=== PATIENT | female | born 1930 | race Caucasian/White ===

== ENCOUNTER 2017-04-14 20:40 | Inpatient (IN) | payer OTHER ==
[~2017-04-14] VITALS: Ht 152.4 cm; Wt 44.9 kg
--- NOTE | 2017-04-14 20:56 | NUR ---
PT PLACED IN BED 6 BY EMS.
[2017-04-14 20:57] VITALS: BP 131/52
--- NOTE | 2017-04-14 21:10 | NUR ---
BIBA C/O ALOC, 3 DAYS AGO, [facility]. BREATHING TREATMENT WAS GIVEN BY FIRE DEPT, WITH NC AT 3L /MIN, NS TKO. NO N/V/D NOTED AT THIS TIME. PT PRESENTS TO THE ER WITH WOUND ON COCCYX AND BRUISES ON LEGS AND ABD AND ARMS. DIMINISHED BS WITH BILAT WHEEZED. HR EVEN AND REGULAR; RECTAL TEMP 102.2. NO CP, SOB, OR COUGH NOTED AT THIS TIME; PATIENT POSITIONED FOR COMFORT; HOB ELEVATED; BEDRAILS UP X2; BED DOWN. ER MD MADE AWARE OF PT STATUS.
--- NOTE | 2017-04-14 21:30 | NUR ---
Patient noted to have existing wounds upon arrival to ER. Photos taken of wound and placed in chart. Wound covered with dressing. Physician informed.
[2017-04-14] MEDS ORDERED: heparin SUBQ (21:33)
[2017-04-14] MEDS ORDERED: ACET-2869 PO (21:33)
[2017-04-14] MEDS ORDERED: ZINC50TA PEG (21:33)
[2017-04-14] MEDS ORDERED: [UNRECOGNIZED DRUG - CODE] PEG (21:33)
[2017-04-14] MEDS ORDERED: PANT40EC28 PO (21:33)
[2017-04-14] MEDS ORDERED: DOCU100C14 PEG (21:33)
[2017-04-14] MEDS ORDERED: NUTR-583 PEG (21:33)
[2017-04-14] MEDS ORDERED: PROP10TA28 PO (21:33)
[2017-04-14] MEDS ORDERED: LANTUS SC ×2 (21:33)
[2017-04-14] MEDS ORDERED: FERR220E10 PEG (21:33)
[2017-04-14] MEDS ORDERED: VIT500LI PO (21:33)
[2017-04-14] MEDS ORDERED: RANI150T8 PEG (21:33)
[2017-04-14] MEDS ORDERED: FURO40TA9 PO (21:33)
[2017-04-14] MEDS ORDERED: INSU-1343 SQ (21:33)
[2017-04-14] MEDS ORDERED: MELA1TAB3 PO (21:33)
[2017-04-14] MEDS ORDERED: SITA50TA3 PEG (21:33)
[2017-04-14] MEDS ORDERED: PARO40TA65 PEG (21:33)
[2017-04-14] MEDS ORDERED: BUPR75TA PEG (21:33)
[2017-04-14] MEDS ORDERED: ACETAMINOPHEN 650 MG/20.3 ML UDC GT ONE (21:55)
[2017-04-14 22:44] LABS: HEMATOCRIT 38.5 % (36-48); HEMOGLOBIN 12.3 g/dL (12.0-16.0); MEAN CORPUSCULAR HEMOGLOBIN 31 pg (27-31); MEAN CORPUSCULAR HGB CONC 32 g/dL (33-37); MEAN CORPUSCULAR VOLUME 96 fL (80-94); PLATELET COUNT (AUTO) 327 K/uL (140-450); RED BLOOD CELL COUNT(AUTO) 4.02 MIL/uL (4.20-5.40); RED CELL DISTRIBUTION WIDTH 17.5 % (11.6-13.7); WHITE BLOOD COUNT (AUTO) 20.6 K/uL (4.8-10.8)
[2017-04-14 22:45] LABS: APPEARANCE,URINE CLOUDY (CLEAR); BILIRUBIN,URINE NEGATIVE (NEGATIVE); BLOOD, URINE 3+ (NEGATIVE); COLOR,URINE YELLOW (YELLOW); LEUKOCYTE ESTERASE ,URINE 3+ (NEGATIVE); NITRITE, URINE NEGATIVE (NEGATIVE); PH,URINE >=9.0 (5.0-9.0); UGLUCOSE TRACE (NEGATIVE)
--- NOTE | 2017-04-14 22:47 | NUR ---
ABG DONE BY RT SANTO WITH NO INCIDENT. RESULTS GIVEN TO DR SOUSA. NO ORDERS GIVEN.
[2017-04-14 23:03] LABS: LYMPHOCYTES % (MANUAL) 5 % (20-46); MONOCYTES % (MANUAL) 8 % (5-12)
[2017-04-14 23:06] LABS: BARBITURATE, URINE NEG. ng/ml (NEG <=200); BENZODIAZEPINE, URINE NEG. ng/mL (NEG <=200); CANNABINOID, URINE NEG. ng/mL (NEG <=50); COCAINE, URINE NEG. ng/mL (NEG <=300); OPIATE, URINE NEG. ng/mL (NEG <=2000); PHENCYCLIDINE SCREEN,URINE NEG. ng/mL (NEG <=25)
[2017-04-14 23:13] LABS: RBC,URINE 20-50 /HPF (0-5)
[2017-04-14 23:15] LABS: ALBUMIN 2.7 g/dL (3.4-5.0); ANION GAP 10.3 (8-16); ASPARTATE AMINOTRANSFERASE 49 U/L (15-37); CARBON DIOXIDE 33.2 mmol/L (21-32); CHLORIDE 116 mmol/L (98-107); CREATININE 2.2 mg/dL (0.6-1.3); GLUCOSE 356 mg/dL (74-106); POTASSIUM 4.5 mmol/L (3.5-5.1); SODIUM SERUM 155 mmol/L (136-145); TOTAL BILIRUBIN 0.5 mg/dL (0.0-1.0)
[2017-04-14 23:15] LABS: WBC,URINE 20-60 /HPF (0-5)
[2017-04-14 23:17] LABS: UREA NITROGEN, BLOOD 150 mg/dL (7-18)
[2017-04-14] MEDS ORDERED: NACL 0.9% 500 ML IV ONE (23:20)
[2017-04-14] MEDS ORDERED: LEVOFLOXACIN 750 MG/D5W PREMIX 150 ML IV ONE (23:20)
[2017-04-15] MEDS ORDERED: LEVOFLOXACIN 750 MG/D5W PREMIX 150 ML IV ONE ×3 (00:19→00:50)
--- NOTE | 2017-04-15 00:30 | NUR ---
CALLED [employer] HEL[employer] LINE TO HAVE THEM SEE WHY I WAS UNABLE TO CHART MEDICATIONS.
[2017-04-15] MEDS ORDERED: NACL 0.9% 500 ML IV ONE ×2 (00:50→01:45)
--- NOTE | 2017-04-15 01:00 | NUR ---
DR SOUSA HAD TO RE-ORDER MEDICATIONS, PROBLEM SOLVED. NOW ALBE TO CHART ON e-MAR MEDICATIONS GIVEN.
[2017-04-15] MEDS ORDERED: NACL 0.9% 1,000 ML IV SCH (01:51)
[2017-04-15] MEDS ORDERED: ALBUTEROL 0.083% 2.5 MG/3 ML NEBU IH PRN (01:55)
[2017-04-15] MEDS ORDERED: ONDANSETRON 4 MG/2 ML VIAL IVP PRN (01:55)
[2017-04-15] MEDS ORDERED: ACETAMINOPHEN 650 MG SUPP RC PRN (02:00)
[2017-04-15] MEDS ORDERED: HYDROcodone/APAP 5/325 MG 1 TAB TAB PO PRN (02:05)
[2017-04-15] MEDS ORDERED: HYDROcodone/APAP 10/325 MG 1 TAB TAB PO STA (02:08)
--- NOTE | 2017-04-15 03:03 | NUR ---
Patient will be admitted to care of DR CORRAL. Admited to TELE. Will go to room 105B. Belongings list completed. Report to HAYLEY CORONA.
[2017-04-15] MEDS ORDERED: PIPERACILLIN/TAZOBACTAM 2.25 GM VIAL IV ONE (03:25)
--- NOTE | 2017-04-15 03:39 | NUR ---
RECEIVED FROM ER PER YONNY OQUENDO. NON VERBAL PER RN IN ER. TELEMETRY MONITORING. GT IN PLACE, MORAES CATHETER IN PLACE DRAINING WITH YELLOW URINE. NPO AT THIS TIME. NOTED WITH BRUISES TO MULTIPLE PARTS OF LOWER EXTREMITIES AND DECUBITUS ULCER TO SACRAL AREA. WITH 02 AT 2 LITERS PER MINUTE 02 SAT AT 100 %. AFEGRILE AT THIS TIME 100. PT. NEEDS WILL BE ANTICIPATED AND WILL BE MET. CALL LIGHT WITH IN REACH AND CARE PLANS FOR THE NIGHT DISCUSSED WITH FAMILY MEMBERS.
--- NOTE | 2017-04-15 03:43 | NUR ---
PT. WITH FORGETFULNESS. PT. KNOWN TO HAVE EPISODES OF BEING CONFUSED PER SON AND DAUGHTER PRESENT. ON FALL RISK PRECAUTION. PLACED ON WOUND BED . CALL LIGHT WITH IN REACH AND BED ALARM ON.
[2017-04-15 04:12] VITALS: BP 97/49
[2017-04-15] MEDS ORDERED: PIPERACILLIN/TAZOBACTAM 2.25 GM in DEXTROSE 5% 50 ML IV SCH (05:00)
[2017-04-15] MEDS ORDERED: GAUZE TP PRN (05:05)
[2017-04-15] MEDS: BLOOD GLUCOSE MONITORING 1 DEV DEV FS SCH ×4 (06:53→21:00)
[2017-04-15] MEDS ORDERED: INSULIN LISPRO 100 UNITS/ML VIAL SUBQ ONE (07:00)
[2017-04-15] MEDS: INSULIN LISPRO SLIDING SCALE 100 UNITS/ML VIAL SUBQ PRN ×3 (07:05→16:31)
--- NOTE | 2017-04-15 07:11 | NUR ---
MD CORRAL IN HERE AND INFORMED HIM OF BLOOD SUGAR . WITH ORDER TO GIVE 16 UNITS HUMALOG. ENDORSED TO THE NEXT RN FOR CONTINUITY OF CARE.
--- NOTE | 2017-04-15 07:12 | NUR ---
RECEIVED REPORT FROM NIGHT HAYLEY CORONA. PT LAYING IN BED.PT HAS FREQUENT ARM AND LEG MOVEMENTS. DAUGHTER AND SON AT BEDSIDE. MORAES CATHETER NOTED. G-TUBE NOTED. ON O2 2L NC. DRESSING TO SACRAL AREA DRY AND INTACT. IV SITE PATENT AND INTACT. AAOX1. PT'S FAMILY INFORMED ABOUT CONTACT PRECAUTIONS AND VERBALIZED UNDERSTANDING. CALL LIGHT WITHIN REACH. SAFETY MEASURES ENSURED. WILL CONTINUE TO MONITOR.
--- NOTE | 2017-04-15 07:24 | NUR ---
RCV'D PT ON 2 L NC. PT HAS A VERY DRY MOUTH AND IS AGITATED. NON RESPONSIVE TO HER NAME. FAMILY AT BEDSIDE. NO SOB OR DISTRESS NOTED. WILL CONTINUE TO MONITOR.
[2017-04-15 07:25] LABS: CREATINE KINASE MB 2.5 ng/mL (0-3.6)
[2017-04-15] MEDS ORDERED: VANCOMYCIN PER PHARMACY MC PRN (07:30)
--- NOTE | 2017-04-15 07:37 | NUR ---
PT. DRESSING FROM ER GOT SOILED. CHANGED DRESSING ORDERED. MD CORRAL AWARE OF DECUBITUS ULCER IN SACRUM. ENDORSED TO THE NEXT RN FOR CONTINUITY OF CARE.
[2017-04-15] MEDS ORDERED: LORazepam 2 MG/ML VIAL IM/IVP PRN (07:40)
[2017-04-15 08:00] VITALS: BP 102/64
--- NOTE | 2017-04-15 08:46 | NUR ---
DR. CORRAL MADE AWARE OF PT'S HR OF 120'S-150.
[2017-04-15] MEDS ORDERED: VANCOMYCIN HCL 750 MG in DEXTROSE 5% 250 ML IV SCH (09:00)
[2017-04-15] MEDS ORDERED: PROPRANOLOL HCL PO SCH (09:00)
[2017-04-15] MEDS: PANTOPRAZOLE 40 MG TABEC PO SCH (09:00)
[2017-04-15] MEDS: PROPRANOLOL 20 MG TAB PO SCH (09:00)
[2017-04-15] MEDS: PARoxetine 20 MG TAB PEG SCH (09:38)
[2017-04-15] MEDS: FERROUS SULFATE 300 MG/5 ML UDC PEG SCH (09:38)
[2017-04-15] MEDS: buPROPion 75 MG TAB PEG SCH ×2 (09:38→20:23)
[2017-04-15] MEDS: LORazepam 2 MG/ML VIAL IVP PRN ×2 (09:39→13:32)
[2017-04-15] MEDS: ENOXAPARIN 30 MG/0.3 ML SYR SUBQ SCH (09:45)
--- NOTE | 2017-04-15 09:52 | NUR ---
PATIENT HAS BEEN SCREENED AND CATEGORIZED HIGH NUTRITION RISK. PATIENT WILL BE SEEN WITHIN 1-2 DAYS OF ADMISSION. 04/15/17-04/16/[address]
[2017-04-15] MEDS: NACL 0.45% 1,000 ML IV SCH ×2 (10:00→22:30)
--- NOTE | 2017-04-15 10:04 | NUR ---
AM MEDICATIONS GIVEN VIA G-TUBE WITH EDUCATION. DAUGHTER AND SON AT BEDSIDE, VERBALIZE UNDERSTANDING.G-TUBE PATENT WITH NO RESIDUAL. ATIVAN GIVEN DUE TO PT APPEARING RESTLESS. PT RESTING COMFORTABLY IN BED NOW. NO S/S OF ACUTE DISTRESS. FLACC-0. WILL CONTINUE TO MONITOR.
--- NOTE | 2017-04-15 10:50 | NUR ---
AM CARE GIVEN, OLD MORAES CATHETER LEAKING, NEW MORAES PUT IN PLACE. WOUND CARE PROVIDED. WILL CONTINUE TO MONITOR.
[2017-04-15] MEDS: GAUZE TP SCH (10:54)
[2017-04-15 11:47] LABS: ANION GAP 17.2 (8-16); CARBON DIOXIDE 27.2 mmol/L (21-32); CHLORIDE 119 mmol/L (98-107); CREATININE 2.3 mg/dL (0.6-1.3); POTASSIUM 4.4 mmol/L (3.5-5.1)
[2017-04-15 11:49] LABS: SODIUM SERUM 159 mmol/L (136-145)
[2017-04-15 11:50] LABS: GLUCOSE 451 mg/dL (74-106); UREA NITROGEN, BLOOD 143 mg/dL (7-18)
[2017-04-15 12:00] VITALS: BP 105/54
[2017-04-15] MEDS: Z-GUARD PASTE TP SCH (13:12)
[2017-04-15] MEDS: PIPER/TAZO 2.25GM/D5W PREMIX 50 ML IV SCH ×2 (13:32→20:23)
--- NOTE | 2017-04-15 13:46 | NUR ---
PT RESTLESS AND KNOCKING OFF OXYGEN. ATIVAN GIVEN. DAUGHTER AND SON AT BEDSIDE.
[2017-04-15 15:00] LABS: CREATINE KINASE MB 1.6 ng/mL (0-3.6)
--- NOTE | 2017-04-15 15:25 | NUR ---
04/15/17 RD INITIAL ASSESSMENT COMPLETED PLEASE REFER TO NUTRITION ASSESSMENT UNDER CARE ACTIVITY FOR ESTIMATED NUTRITIONAL NEEDS. RD RECOMMENDATIONS: 1. CONTINUE NPO MEDICALLY APPROPRIATE. 2. IF/WHEN PT IS MEDICALLY STABLE TO BEING TUBE FEEDING, CONSIDER DIABETISOURCE AT 55 ML/HR WITH 200 ML OF FREE WATER FLUSH Q6H VIA G TUBE. START AT 25 ML/HR AND INCREASE 10 ML/HR Q8H TOLERATED TO GOAL RATE. AT GOAL RATE, TUBE FEEDING WILL PROVIDE 1320 ML TOTAL VOLUME, 1584 KCAL, 79 GM OF PROTEIN, AND 1879 ML OF FREE WATER (ADEQUATE TO MEET ~98% OF ESTIMATED KCAL NEEDS AND ~97% OF ESTIMATED PROTEIN NEEDS). 3. RECOMMEND ADDING 500 MG OF VITAMIN C PO DAILY FOR WOUND HEALING. 4. RD WILL F/U 2-3 DAYS; HIGH RISK DEANN HARDING RD
--- NOTE | 2017-04-15 15:41 | NUR ---
US TECH AT BEDSIDE. NO S/S OF ACUTE DISTRESS. FLACC-0. WILL CONTINUE TO MONITOR.
[2017-04-15 16:00] VITALS: BP 127/63
--- NOTE | 2017-04-15 19:11 | NUR ---
ENDORSED PLAN OF CARE TO NIGHT RN. PT REMAINS STABLE.
--- NOTE | 2017-04-15 19:15 | NUR ---
RECEIVED PATIENT REPORT AT BEDSIDE. PATIENT IS ASLEEP. NO SIGNS AND SYMPTOMS OF DISTRESS NOTED. PATIENT ON ROOM AIR. MORAES CATHETER IN PLACE, DRAINING DARK JUSTIN URINE. G-TUBE IN PLACE. IV SITE NOTED AT LEFT FOREARM, IVF INFUSING WELL. SCD IN PLACE. BED IS IN LOWEST POSITION, SIDE RAILS UP, AND CALL LIGHT WITHIN REACH. WILL CONTINUE TO MONITOR.
[2017-04-15 19:42] VITALS: BP 113/54
--- NOTE | 2017-04-15 21:45 | NUR ---
PATIENT HAD A BOWEL MOVEMENT. STOOL WAS BROWN AND MUSHY, MODERATE IN AMOUNT. ROMARIO-CARE DONE.
--- NOTE | 2017-04-15 21:55 | NUR ---
SACRAL WOUND DRESSING CHANGED. WOUND CLEANSED WITH NS. ADAPTIC APPLIED FOLLOWED BY DRY KERLEX ZAN, FAN FOLDED. ABD PAD APPLIED AND SECURED.
--- NOTE | 2017-04-15 23:35 | NUR ---
CHECKED ON PATIENT. PATIENT IS ASLEEP. NO SIGNS AND SYMPTOMS OF DISTRESS NOTED. WILL CONTINUE TO MONITOR
[2017-04-15 23:54] VITALS: BP 122/59
[2017-04-16] MEDS: Z-GUARD PASTE TP SCH ×2 (01:00→13:35)
[2017-04-16] MEDS: LORazepam 2 MG/ML VIAL IVP PRN ×2 (01:58→09:08)
[2017-04-16] MEDS: NACL 0.45% 1,000 ML IV SCH ×2 (03:30→20:15)
--- NOTE | 2017-04-16 03:55 | NUR ---
CHECKED ON PATIENT. PATIENT IS ASLEEP. NO SIGNS AND SYMPTOMS OF DISTRESS NOTED. WILL CONTINUE TO MONITOR
[2017-04-16 04:00] VITALS: BP 115/54
[2017-04-16] MEDS: PIPER/TAZO 2.25GM/D5W PREMIX 50 ML IV SCH ×3 (04:28→20:40)
--- NOTE | 2017-04-16 04:30 | NUR ---
PATIENT HAD BM. STOOL PASTY, BROWN AND MODERATED AND AMOUNT. PERINEAL CARE GIVEN. SACRAL WOUND DRESSING CHANGED. WOUND CLEANSED WITH NS. ADAPTIC DRESSING APPLIED. WOUND PACKED WITH KERLEX THEN COVERED WITH ABD PAD. PATIENT TURNED AND REPOSITIONED FOR COMFORT
--- NOTE | 2017-04-16 05:50 | NUR ---
PATIENT GIVEN ORAL CARE. PATIENT TURNED AND REPOSITIONED FOR COMFORT
[2017-04-16] MEDS: BLOOD GLUCOSE MONITORING 1 DEV DEV FS SCH ×4 (07:00→21:24)
[2017-04-16 07:18] LABS: HEMATOCRIT 31.7 % (36-48); HEMOGLOBIN 10.2 g/dL (12.0-16.0); MEAN CORPUSCULAR HEMOGLOBIN 32 pg (27-31); MEAN CORPUSCULAR HGB CONC 32 g/dL (33-37); MEAN CORPUSCULAR VOLUME 99 fL (80-94); PLATELET COUNT (AUTO) 222 K/uL (140-450); RED BLOOD CELL COUNT(AUTO) 3.22 MIL/uL (4.20-5.40); RED CELL DISTRIBUTION WIDTH 17.9 % (11.6-13.7); WHITE BLOOD COUNT (AUTO) 14.3 K/uL (4.8-10.8)
--- NOTE | 2017-04-16 07:22 | NUR ---
PATIENT REPORT GIVEN TO MORNING NURSE. PATIENT IS IN STABLE CONDITION. BED IS IN LOWEST POSITION, SIDE RAILS UP, AND CALL LIGHT WITHIN REACH.
[2017-04-16 07:25] LABS: ALBUMIN 2.2 g/dL (3.4-5.0); ANION GAP 12.9 (8-16); ASPARTATE AMINOTRANSFERASE 27 U/L (15-37); CARBON DIOXIDE 28.4 mmol/L (21-32); CHLORIDE 122 mmol/L (98-107); CREATININE 1.8 mg/dL (0.6-1.3); POTASSIUM 3.3 mmol/L (3.5-5.1); TOTAL BILIRUBIN 1.1 mg/dL (0.0-1.0)
--- NOTE | 2017-04-16 07:25 | NUR ---
RECEIVED REPORT FROM ROOM SERVICE RUNNER NURSE, PT IS RESTING IN BED, A/OX1, APHASIC, IV IS ON THE RT AC, PATENT INTACT, FLUSHING WELL, PT HAS ALSO HAS IV ON THE LEFT FA, PATENT, INTACT, FLUSHING WELL, PT HAS SACRAL WOUND, NO S/S OF RESPIRATORY DISTRESS OR DISCOMFORT NOTED, DISCUSSED PLAN OF CARE WITH PT, PT UNABLE TO COMPREHEND, CALL LIGHT IS WITHIN REACH, WILL CONTINUE TO MONITOR.
[2017-04-16 07:37] LABS: MAGNESIUM 3.1 mg/dL (1.8-2.4)
[2017-04-16 07:39] LABS: GLUCOSE 404 mg/dL (74-106); SODIUM SERUM 160 mmol/L (136-145); UREA NITROGEN, BLOOD 98 mg/dL (7-18)
[2017-04-16 08:00] VITALS: BP 106/65
[2017-04-16 08:05] LABS: BASOPHILS % (MANUAL) 0 % (0-2); EOSINOPHILS % (MANUAL) 0 % (0-4); LYMPHOCYTES % (MANUAL) 9 % (20-46); MONOCYTES % (MANUAL) 5 % (5-12)
[2017-04-16] MEDS ORDERED: INSULIN GLARGINE HUM REC ANLOG U SCH ×2 (09:00→21:00)
[2017-04-16] MEDS: ASPIRIN 81 MG TAB.CHEW PO SCH (09:00)
[2017-04-16] MEDS ORDERED: METOPROLOL 25 MG TAB PO SCH (09:00)
[2017-04-16] MEDS ORDERED: FUROSEMIDE 40 MG TAB PO SCH (09:00)
[2017-04-16] MEDS: PANTOPRAZOLE 40 MG TABEC PO SCH (09:00)
[2017-04-16] MEDS: PROPRANOLOL 20 MG TAB PO SCH (09:00)
[2017-04-16] MEDS: DOCUSATE SODIUM 100 MG GELCAP PO SCH ×2 (09:00→20:40)
[2017-04-16] MEDS: buPROPion 75 MG TAB PEG SCH ×2 (09:08→20:40)
[2017-04-16] MEDS: PARoxetine 20 MG TAB PEG SCH (09:08)
[2017-04-16] MEDS: FERROUS SULFATE 300 MG/5 ML UDC PEG SCH (09:09)
[2017-04-16] MEDS: ENOXAPARIN 30 MG/0.3 ML SYR SUBQ SCH (09:18)
[2017-04-16] MEDS: INSULIN DETEMIR 100 UNITS/ML 10 ML VIAL SUBQ SCH (09:33)
[2017-04-16] MEDS ORDERED: KCL 20 MEQ/WATER INJ PREMIX 100 ML IV SCH (10:15)
[2017-04-16] MEDS ORDERED: VANCOMYCIN HCL 750 MG in DEXTROSE 5% 250 ML IV SCH (10:30)
[2017-04-16 12:00] VITALS: BP 119/47
[2017-04-16] MEDS: INSULIN LISPRO SLIDING SCALE 100 UNITS/ML VIAL SUBQ PRN (12:49)
[2017-04-16] MEDS: GAUZE TP SCH (13:35)
[2017-04-16 16:00] VITALS: BP 119/51
[2017-04-16] MEDS: DEXTROSE 50% 50 ML SYR IVP PRN ×2 (16:37→20:49)
[2017-04-16 16:42] LABS: ANION GAP -5.2 (8-16); CARBON DIOXIDE 30.8 mmol/L (21-32); CHLORIDE 121 mmol/L (98-107); CREATININE 1.4 mg/dL (0.6-1.3); GLUCOSE 112 mg/dL (74-106); SODIUM SERUM 144 mmol/L (136-145)
[2017-04-16 16:58] LABS: POTASSIUM 2.6 mmol/L (3.5-5.1); UREA NITROGEN, BLOOD 85 mg/dL (7-18)
--- NOTE | 2017-04-16 17:02 | NUR ---
unable to perform a full echo study on patient due to body habitus and pt kept moving around. Pt was unable to stay still
--- NOTE | 2017-04-16 19:15 | NUR ---
ENDORSED PT TO PREMISES TECHNICIAN NURSE FOR CONTINUITY OF CARE, PT STABLE AT THIS TIME.
--- NOTE | 2017-04-16 19:16 | NUR ---
RECEIVED REPORT FROM DAY RN FOR CONTINUITY OF CARE. PATIENT IS ALERT AND ORIENTED X1, APHASIC. SHIFT ASSESSMENT DONE, VITAL SIGNS TAKEN, STABLE AT THIS TIME. NO RESPIRATORY DISTRESS NOTED ON 2L NC, O2 SAT AT 94%. FLACC-0. IV TO RT AC REMOVED WITH CANNULA INTACT. IV TO LT FA PATENT AND INFUSING FLUIDS WELL. PATIENT HAS MORAES CATHETER IN PLACE DRAINING JUSTIN URINE TO GRAVITY. SACRAL ULCER WITH DRESSING DRY AND INTACT. SCDS IN PLACE. SAFETY/ FALL AND CONTACT PRECAUTIONS ENFORCED, WILL CONTINUE TO MONITOR.
[2017-04-16 20:00] VITALS: BP 101/47
--- NOTE | 2017-04-16 20:49 | NUR ---
DUE MEDICATIONS ADMINISTERED VIA G TUBE, TOLERATED WELL. BLOOD SUGAR TAKEN 35, ADMINISTERED D50 PER MD ORDER, WILL REASSESS.
[2017-04-16] MEDS ORDERED: INSULIN DETEMIR 100 UNITS/ML 10 ML VIAL SUBQ SCH (21:00)
--- NOTE | 2017-04-16 21:24 | NUR ---
BLOOD SUGAR RECHECKED, NOW 154, HELD INSULIN. PATIENT RESTING IN BED, WILL CONTINUE TO MONITOR FREQUENTLY.
[2017-04-17] VITALS: BP 107/77
--- NOTE | 2017-04-17 | NUR ---
VITAL SIGNS TAKEN, PATIENT REPOSITIONED AND ROMARIO CARE PROVIDED. SAFETY MEASURES ENSURED, CALL LIGHT WITHIN REACH. WILL CONTINUE TO MONITOR.
[2017-04-17] MEDS: Z-GUARD PASTE TP SCH ×2 (01:32→13:22)
[2017-04-17] MEDS: NACL 0.45% 1,000 ML IV SCH ×2 (02:15→12:21)
[2017-04-17] MEDS: LORazepam 2 MG/ML VIAL IVP PRN (02:15)
--- NOTE | 2017-04-17 02:17 | NUR ---
REPLACED IVF, PATIENT AGITATED TOSSING AROUND, REMOVED IV WITH CANNULA INTACT,NEW IV LINE INSERTION TO LT FA PATENT AND INFUSING FLUIDS WELL. ADMINISTERED MEDICATION PER MD ORDER, VITAL SIGNS STABLE.
[2017-04-17 04:00] VITALS: BP 104/68
--- NOTE | 2017-04-17 04:10 | NUR ---
VITAL SIGNS STABLE, WOUND CARE PROVIDED. TURNED AND REPOSITIONED PATIENT TO OFFLOAD PRESSURE. SAFETY MEASURES CHECKED, WILL CONTINUE TO MONITOR FREQUENTLY.
[2017-04-17] MEDS: PIPER/TAZO 2.25GM/D5W PREMIX 50 ML IV SCH ×2 (04:37→13:28)
[2017-04-17] MEDS: BLOOD GLUCOSE MONITORING 1 DEV DEV FS SCH ×3 (05:58→16:58)
--- NOTE | 2017-04-17 06:03 | NUR ---
BLOOD SUGAR 111, NO INSULIN COVERAGE NEEDED AT THIS TIME. SAFETY MEASURES ENFORCED, WILL CONTINUE TO MONITOR.
[2017-04-17 06:58] LABS: ALBUMIN 2.2 g/dL (3.4-5.0); ANION GAP 14.2 (8-16); ASPARTATE AMINOTRANSFERASE 54 U/L (15-37); CARBON DIOXIDE 27.9 mmol/L (21-32); CHLORIDE 123 mmol/L (98-107); CREATININE 1.4 mg/dL (0.6-1.3); GLUCOSE 125 mg/dL (74-106); POTASSIUM 3.1 mmol/L (3.5-5.1); TOTAL BILIRUBIN 0.5 mg/dL (0.0-1.0)
--- NOTE | 2017-04-17 07:15 | NUR ---
ENDORSED PATIENT TO DAY RN FOR CONTINUITY OF CARE, PATIENT IS IN STABLE CONDITION.
--- NOTE | 2017-04-17 07:20 | NUR ---
RECEIVED REPORT FROM DRIVEWAY ATTENDANT NURSE, PT IS SLEEPING IN BED AT THIS TIME BUT EASILY AWAKEN, PT IS APHASIC, A/OX1, BEDBOUND, IV IS ON HER LEFT FA, PATENT, INTACT, FLUSHING WELL, PT HAS SACRAL WOUND, NO S/S OF RESPIRATORY DISTRESS OR DISCOMFORT NOTED, DISCUSSED PLAN OF CARE WITH PT, PT UNABLE TO COMPREHEND, CALL LIGHT IS WITHIN REACH, WILL CONTINUE TO MONITOR.
[2017-04-17 07:35] LABS: SODIUM SERUM 162 mmol/L (136-145); UREA NITROGEN, BLOOD 77 mg/dL (7-18)
[2017-04-17 08:00] VITALS: BP 128/56
[2017-04-17 08:40] LABS: BASOPHILS # (AUTO) 0.1 K/uL (0.00-0.22); BASOPHILS % (AUTO) 0.5 % (0.0-2.0); EOSINOPHILS # (AUTO) 0.2 K/uL (0-0.4); EOSINOPHILS % (AUTO) 1.5 % (0.0-4.0); HEMATOCRIT 31.9 % (36-48); HEMOGLOBIN 10.1 g/dL (12.0-16.0); LYMPHOCYTES # (AUTO) 0.9 K/uL (2.5-16.5); LYMPHOCYTES % (AUTO) 7.7 % (20.5-51.1); MEAN CORPUSCULAR HEMOGLOBIN 31 pg (27-31); MEAN CORPUSCULAR HGB CONC 32 g/dL (33-37); MEAN CORPUSCULAR VOLUME 98 fL (80-94); MONOCYTES # (AUTO) 0.5 K/uL (0.8-1.0); MONOCYTES % (AUTO) 4.5 % (1.7-9.3); NEUTROPHILS # (AUTO) 9.8 K/uL (1.8-7.7); NEUTROPHILS % (AUTO) 85.8 % (42.2-75.2); PLATELET COUNT (AUTO) 168 K/uL (140-450); RED BLOOD CELL COUNT(AUTO) 3.26 MIL/uL (4.20-5.40); RED CELL DISTRIBUTION WIDTH 17.7 % (11.6-13.7); WHITE BLOOD COUNT (AUTO) 11.5 K/uL (4.8-10.8)
[2017-04-17] MEDS ORDERED: PROPRANOLOL 20 MG TAB GT SCH (09:00)
[2017-04-17] MEDS: ASPIRIN 81 MG TAB.CHEW PO SCH (09:00)
[2017-04-17] MEDS: INSULIN DETEMIR 100 UNITS/ML 10 ML VIAL SUBQ SCH (09:00)
[2017-04-17] MEDS: DOCUSATE SODIUM 100 MG GELCAP PO SCH (09:00)
[2017-04-17] MEDS ORDERED: PANTOPRAZOLE 40 MG INJ VIAL IVP SCH (09:00)
[2017-04-17] MEDS: buPROPion 75 MG TAB PEG SCH (09:17)
[2017-04-17] MEDS: PARoxetine 20 MG TAB PEG SCH (09:17)
--- NOTE | 2017-04-17 09:17 | NUR ---
CHECKED FOR RESIDUAL 20ML, DUE MEDICATIONS GIVEN, PT TOLERATED WELL, CALL LIGHT IS WITHIN REACH, WILL CONTINUE TO MONITOR.
[2017-04-17] MEDS: FERROUS SULFATE 300 MG/5 ML UDC PEG SCH (09:18)
[2017-04-17] MEDS: ENOXAPARIN 30 MG/0.3 ML SYR SUBQ SCH (09:38)
--- NOTE | 2017-04-17 11:30 | NUR ---
PATIENT IS SLEEPING IN BED AT THIS TIME, NO S/S OF RESPIRATORY DISTRESS OR DISCOMFORT NOTED, CALL LIGHT IS WITHIN REACH, WILL CONTINUE TO MONITOR.
[2017-04-17] MEDS ORDERED: TYL650S RC (11:59)
[2017-04-17] MEDS ORDERED: PIPE1PDS39 IV (11:59)
[2017-04-17 12:00] VITALS: BP 110/50
--- NOTE | 2017-04-17 13:00 | NUR ---
PATIENT IS SLEEPING IN BED AT THIS TIME, CALL LIGHT IS WITHIN REACH.
[2017-04-17] MEDS: GAUZE TP SCH (13:22)
[2017-04-17] MEDS: INSULIN LISPRO SLIDING SCALE 100 UNITS/ML VIAL SUBQ PRN (13:27)
[2017-04-17] MEDS ORDERED: DEXTROSE 5% 1,000 ML IV SCH (14:05)
--- NOTE | 2017-04-17 14:05 | NUR ---
DR. GARZON BAT CARRIER AT PATIENT BEDSIDE.
--- NOTE | 2017-04-17 15:15 | NUR ---
FAXED INITIAL REVIEW TO [facility] [phone] PHONE LYNETTE [phone] CALLED [facility] AND SPOKE WITH LYNETTE. SHE SAID SHE WOULD CALL BE BACK WITH THE [facility] FOR [facility] AND TRANSPORT. I SPOKE WITH DARVIN AT [facility] [place]. THE PATIENT CAN GO TO ROOM 32B UNDER DR. Batool HAJI AFTER 6P.M.
[2017-04-17] MEDS: KCL 20 MEQ/WATER INJ PREMIX 100 ML IV SCH ×2 (15:43→17:01)
[2017-04-17 16:00] VITALS: BP 106/65
--- NOTE | 2017-04-17 16:02 | NUR ---
SPOKE WITH LYNETTE FROM [facility]. SHE SAID SHE SET UP GURNEY TRANSPORT WITH [facility] FOR 6:30P.Hilaria RAY RADAR REPAIRER NURSE AWARE. LYNETTE SAID SHE WOULD CALL [facility] AND GIVE THEM THE AUTH FOR THE [facility].
--- NOTE | 2017-04-17 16:30 | NUR ---
PATIENT'S SON (KANNAN) IS AT PATIENT'S BEDSIDE AT THIS TIME.
--- NOTE | 2017-04-17 17:00 | NUR ---
CALLED [facility] AND GAVE REPORT TO CALEB [facility].
--- NOTE | 2017-04-17 19:30 | NUR ---
ENDORSED PT TO FERRY PILOT NURSE FOR CONTINUITY OF CARE, PT STABLE AT THIS TIME.
--- NOTE | 2017-04-17 19:32 | NUR ---
RECEIVED REPORT FROM NIGHT RN. PT RESTING IN BED. AAOX1, DAUGHTER AT BEDSIDE. IV SITE PATENT AND INTACT. G-TUBE NOTED AND PATENT. MORAES CATHETER PATENT. FLACC-0. WOUND TO SACRAL AREA DRY AND INTACT. [facility] ETA 45 MINS. CALL LIGHT WITHIN REACH. SAFETY MEASURES ENSURED. WILL CONTINUE TO MONITOR.
[2017-04-17 20:00] VITALS: BP 128/44
--- NOTE | 2017-04-17 20:55 | NUR ---
[facility] HERE TO CONCRETE ROD BUSTER PT. NO S/S OF ACUTE DISTRESS. FLACC-0. G-TUBE DISCONNECTED. PT SENT WITH IV AND MORAES CATHETER ORDERED. DAUGHTER AT BEDSIDE. PT REMAINS STABLE.
--- NOTE | 2017-04-18 08:43 | NUR ---
WOUND CARE EVALUATION NOT DONE, PT. DISCHARGED ON 04/17/17
== END 2017-04-17 20:55 | DRG 871 ==
LOC: MED 20:40 → MTU 04-15 01:58
PROVIDERS: ADMIT Hospitalist; ATTEND Hospitalist
DX: A41.9 Sepsis, unspecified organism (principal); G93.40 Encephalopathy, unspecified; N17.0 Acute kidney failure with tubular necrosis; J96.10 Chronic respiratory failure, unspecified whether with hypoxia or hypercapnia; E46 Unspecified protein-calorie malnutrition; E87.0 Hyperosmolality and hypernatremia; Z93.0 Tracheostomy status; Z68.1 Body mass index [BMI] 19.9 or less, adult; N12 Tubulo-interstitial nephritis, not specified as acute or chronic; I13.0 Hypertensive heart and chronic kidney disease with heart failure and stage 1 through stage 4 chronic kidney disease, or unspecified chronic kidney disease; G45.9 Transient cerebral ischemic attack, unspecified; I50.9 Heart failure, unspecified; E11.22 Type 2 diabetes mellitus with diabetic chronic kidney disease; N18.9 Chronic kidney disease, unspecified; E11.65 Type 2 diabetes mellitus with hyperglycemia; I25.10 Atherosclerotic heart disease of native coronary artery without angina pectoris; E87.8 Other disorders of electrolyte and fluid balance, not elsewhere classified; F32.9 Major depressive disorder, single episode, unspecified; F41.9 Anxiety disorder, unspecified; K21.9 Gastro-esophageal reflux disease without esophagitis; E86.0 Dehydration; Z86.73 Personal history of transient ischemic attack (TIA), and cerebral infarction without residual deficits; Z91.041 Radiographic dye allergy status; Z79.4 Long term (current) use of insulin; Z79.899 Other long term (current) drug therapy; Z82.3 Family history of stroke
CPT/HCPCS: 36415; 36600; 70450; 71010; 76770; 80048; 80053; 80202; 80305; 81001; 82140; 82550; 82553; 82803; 82948; 83605; 83735; 83880; 84300; 84484; 84550; 85025; 87040; 87070; 87077; 87081; 87086; 87186; 93005; 94640; 96361; 96365; 96366; 99291; C9113; J1650; J1815; J1956; J2060; J2543; J3370; J3480; J7030; J7060; J7613; Q0092